=== PATIENT | male | born 1975 | race African-American/Black ===

== ENCOUNTER 2018-03-31 11:21 | Inpatient (IN) | payer OTHER ==
[~2018-03-31] VITALS: Ht 180.3 cm; Wt 113.4 kg
[2018-03-31 15:09] LABS: EOSINOPHILS % 1.6 % (0.0-5.0); HEMATOCRIT. 45.2 % (42.0-52.0); HEMOGLOBIN. 15.3 g/dL (14.0-18.0); MEAN CORPUSCULAR HEMOGLOBIN 31.9 pg (28.0-32.0); MEAN CORPUSCULAR VOLUME 94.1 fL (80.0-94.0); MEAN PLATELET VOLUME 7.7 fl (7.4-10.4); MONOCYTES % 9.3 % (2.0-8.0); NEUTROPHILS % 65.1 % (40.0-76.0); PLATELET 226 x1000/uL (130-400); RED CELL DISTRIBUTION WIDTH 13.4 % (11.6-14.6)
[2018-03-31 15:15] LABS: PARTIAL THROMBOPLASTIN TIME 29.6 sec (23.4-31.0)
[2018-03-31] MEDS ORDERED: HYDROCODONE/ACETAMINOPHEN 5/325MG TABLET PO ONE (15:15)
[2018-03-31] MEDS ORDERED: ACETAMINOPHEN 325MG TABLET PO PRN (16:15)
[2018-03-31] MEDS ORDERED: ACETAMINOPHEN 650MG SUPP PR PRN (16:15)
[2018-03-31] MEDS ORDERED: GUAIFENESIN 200MG/10ML SUGAR FREE UDC PO PRN (16:15)
[2018-03-31] MEDS ORDERED: NA PHOS,M-B/NA PHOS,DI-BA ENEMA 118ML PR PRN (16:15)
[2018-03-31] MEDS ORDERED: IPRATROPIUM/ALBUTEROL 0.5-3(2.5)MG/3ML NEB INH PRN (16:15)
[2018-03-31] MEDS ORDERED: CLONIDINE 0.1MG TABLET PO PRN (16:15)
[2018-03-31] MEDS ORDERED: DOCUSATE SODIUM 100MG CAPSULE PO PRN (16:15)
[2018-03-31] MEDS ORDERED: ONDANSETRON HCL 4MG/2ML INJ IV PRN (16:15)
[2018-03-31] MEDS ORDERED: MAGNESIUM/ALUMINUM HYDROXIDE/SIMETHICONE 30ML UDC PO PRN (16:15)
[2018-03-31] MEDS ORDERED: LORAZEPAM 0.5MG TABLET PO PRN (16:15)
[2018-03-31] MEDS ORDERED: DIPHENHYDRAMINE 50MG/ML VIAL IV PRN (16:15)
[2018-03-31] MEDS ORDERED: HYDROCODONE/ACETAMINOPHEN 5/325MG TABLET PO PRN (16:15)
[2018-03-31 16:26] LABS: CHLORIDE 104 mEq/L (98-107)
[2018-03-31] MEDS ORDERED: AMLODIPINE 5MG TABLET PO NR (17:45)
[2018-03-31 17:56] VITALS: BP 141/79
[2018-03-31 18:00] VITALS: BP 141/79
[2018-03-31] MEDS ORDERED: ENOXAPARIN 120MG/0.8ML SYR SUBCUT SCH (18:00)
[2018-03-31] MEDS ORDERED: INFLUENZA VIRUS VACCINE(AFLURIA) 0.5ML SYR IM ONE (18:15)
[2018-03-31 21:19] LABS: CHLORIDE 104 mEq/L (98-107)
[2018-03-31 21:58] VITALS: BP 138/72
[2018-03-31] MEDS ORDERED: IOHEXOL-350 100 ML BOTTLE ONE (22:54)
[2018-04-01] MEDS ORDERED: AMLODIPINE 5MG TABLET PO SCH (09:00)
[2018-04-04 13:07] LABS: DRVVT LA 43.4 sec (0.0-47.0); PROTEIN C FUNCTIONAL 110 % (73-180); PTT-LA 29.6 sec (0.0-51.9)
[2018-04-04 14:18] LABS: LUPUS ANTICOAG INTERPRETATION Comment: (.)
== END 2018-03-31 22:37 | disposition home or self-care (01) | DRG 197 ==
LOC: ER 11:21 → 5WST 15:17 → EDBEDREQ 15:23 → ENRESERV 15:25 → SUPCPDRO 16:37
PROVIDERS: ADMIT Internal Medicine; ATTEND Internal Medicine
DX: I82.431 Acute embolism and thrombosis of right popliteal vein (principal); D68.59 Other primary thrombophilia; E66.2 Morbid (severe) obesity with alveolar hypoventilation; I10 Essential (primary) hypertension; Z87.891 Personal history of nicotine dependence; Z68.34 Body mass index [BMI] 34.0-34.9, adult
CPT/HCPCS: 36415; 71045; 71275; 80048; 81403; 81407; 81479; 83880; 84484; 85303; 85306; 85613; 85732; 93005; 93971; 99285; J1650; Q9967

== ENCOUNTER 2018-04-10 14:24 | Emergency (ER) | payer OTHER ==
[~2018-04-10] VITALS: Ht 180.3 cm; Wt 118.0 kg
[2018-04-10 18:21] VITALS: BP 142/89
== END 2018-04-10 18:22 | disposition home or self-care (01) ==
LOC: ER 14:24
DX: M79.661 Pain in right lower leg (principal); I10 Essential (primary) hypertension; F12.10 Cannabis abuse, uncomplicated; Z87.891 Personal history of nicotine dependence
CPT/HCPCS: 99283

== ENCOUNTER 2021-06-02 18:22 | Emergency (ER) | payer OTHER ==
[~2021-06-02] VITALS: Ht 180.3 cm; Wt 115.9 kg
[2021-06-02] MEDS ORDERED: PETROLATUM,WHITE OPHTH OINT 3.5GM LEFTEYE STA (20:56)
[2021-06-02] MEDS ORDERED: LORAZEPAM 1MG TABLET PO ONE (21:00)
[2021-06-02] MEDS ORDERED: ACYC200C31 PO (21:01)
[2021-06-02] MEDS ORDERED: P50 PO (21:04)
[2021-06-02] MEDS ORDERED: MINE3.5O4 OP ×2 (21:06)
[2021-06-02 21:28] VITALS: BP 162/100
[2021-06-07] MEDS ORDERED: P50 PO (12:05)
[2021-06-07] MEDS ORDERED: MINE3.5O4 OP (12:05)
== END 2021-06-02 21:30 | disposition home or self-care (01) ==
LOC: ER 18:34
DX: G51.0 Bell's palsy (principal); I10 Essential (primary) hypertension; F12.10 Cannabis abuse, uncomplicated; Z86.718 Personal history of other venous thrombosis and embolism
CPT/HCPCS: 82962; 93005; 99283